=== PATIENT | female | born 1940 | race Caucasian/White ===

== ENCOUNTER 2019-11-08 08:49 | Outpatient (CLI) | payer MEDICARE, OTHER, SELFPAY ==
--- NOTE | ~2019-11-08 | MM_ITS ---
EXAMINATION: MM screening aj BI w julianne HISTORY: Screening mammogram TECHNIQUE: Craniocaudal and mediolateral oblique 3-D tomosynthesis images were obtained and synthetic 2-D images were generated. CAD analysis was submitted and interpreted. COMPARISON: Comparison to multiple prior studies sequentially, with oldest reviewed study dated 09/13. BREAST PARENCHYMAL COMPOSITION: The breasts are almost entirely fatty. FINDINGS: There is no evidence of suspicious mass, calcification, or architectural distortion to sugg est malignancy in either breast. There has been no suspicious interval change. IMPRESSION: 1. No mammographic evidence of malignancy. 2. Recommend routine screening mammography in one year. BI-RADS Category 1: Negative Reviewed, dictated and finalized at location A.
== END 2019-11-08 08:50 | disposition home or self-care (01) ==
PROVIDERS: PCP Family Medicine; Visit Provider Family Medicine
DX: Z12.31 Encounter for screening mammogram for malignant neoplasm of breast (principal)
CPT/HCPCS: 77063; 77067

== ENCOUNTER 2020-11-22 06:47 | Outpatient (CLI) | payer MEDICARE, OTHER, SELFPAY ==
--- NOTE | ~2020-11-22 | MR_ITS ---
EXAMINATION: MR brain IAC wo/w con DATE: 11/22/2020 08:08 INDICATION: Right-sided hearing loss. TECHNIQUE: Magnetic resonance imaging (MRI) of the brain, brainstem, and internal auditory canals was performed without and with 12 mL MultiHance intravenous contrast. Sequences included sagittal and ax ial T1-weighted FSE, axial diffusion-weighted FS EPI, axial T2*-weighted GRE, axial T2-weighted FLAIR Propeller, axial T2-weighted Propeller, small utpks-tg-hqwc coronal FIESTA, small lmjym-bq-khry shelley nal T1-weighted FSE, and small uhtqe-cu-pbbi axial T1-weighted SPGR. Postcontrast sequences included axial T1-weighted FSE, small uetwm-oq-bjne coronal T1-weighted FSE, and small jvxzq-jg-zuoy axial T1- weighted SPGR. Apparent diffusion coefficient (ADC) maps were created. COMPARISON: None. FINDINGS: There is no intracranial hemorrhage, acute infarction, or abnormal intracranial mass lesion . The ventricles are normal in size. There is mild mucosal thickening in the ethmoid sinuses. There a re likely changes of ocular lens replacement surgeries. The mastoid air cells are normal. The interna l auditory canals and inner and middle ears are normal. IMPRESSION: 1. Normal brain. Reviewed, dictated and finalized at location A. IMPRESSION: 1. Normal brain.
== END 2020-11-22 06:48 | disposition home or self-care (01) ==
LOC: ANHIMG 06:51
PROVIDERS: PCP Family Medicine; Visit Provider Otolaryngology
DX: H91.8X9 Other specified hearing loss, unspecified ear (principal)
CPT/HCPCS: 70553; A9577

== ENCOUNTER → 2021-01-02 17:25 | Outpatient (CLI) | payer MEDICARE, OTHER, SELFPAY ==
--- NOTE | ~2021-01-02 | DEXA_ITS ---
Bone Density Report Name: Christelle Pérez Age: 80 Sex: Female Ethnicity: White Date of : 1940 Indication: postmenopausal; screening for osteoporosis; parental hip fracture; height loss; prior fracture; hysterectomy; Referring Provider: KHUSHBU ALEXIS Study: Bone densitometry was performed. Exam Date: January 02, 2021 Accession number: [id number] Bone Density: Region BMD T-score Z-score Classification AP Spine (L1-L4) 0.934 -1.0 1.6 Normal Femoral Neck (Left) 0.642 -1.9 0.4 Osteopenia Total Hip (Left) 0.807 -1.1 0.9 Osteopenia Femoral Neck (Right) 0.627 -2.0 0.3 Osteopenia Total Hip (Right) 0.868 -0.6 1.4 Normal Total Hip Mean 0.838 -0.9 1.2 Normal World Health Organization criteria for BMD impression classify patients as: Normal (T-score at or above -1.0), Osteopenia (T-score between -1.0 and -2.5), or Osteoporosis (T-score at or below -2.5). 10-year Fracture Risk(1): Major Osteoporotic Fracture 37% Hip Fracture 22% Reported Risk Factors: [place] (), Neck BMD=0.627, BMI=25.3, previous fracture, parental fracture (1) FRAX(R) Version 3.08. Fracture probability calculated for an untreated patient. Fracture probability may be lower if the patient has received treatment. Previous Exams: Region Exam Age BMD T-score BMD Change BMD Change Date g/cm2 vs Baseline vs Previous AP Spine(L1-L4) 01/02/2021 80 0.934 -1.0 -0.005 0.000 09/15/2014 73 0.935 -1.0 -0.005 0.031 09/13/2012 71 0.903 -1.3 -0.036* -0.024* 08/23/2010 69 0.927 -1.1 -0.012 0.056* 06/12/2008 67 0.871 -1.6 -0.068* -0.016 06/04/2006 65 0.887 -1.5 -0.052* -0.052* 05/10/2004 63 0.939 -1.0 Total Hip(Left) 01/02/2021 80 0.807 -1.1 -0.163* -0.083 09/15/2014 73 0.889 -0.4 -0.080 0.010 09/13/2012 71 0.880 -0.5 -0.089* 0.026 08/23/2010 69 0.854 -0.7 -0.116* -0.026 06/12/2008 67 0.880 -0.5 -0.090* -0.004 06/04/2006 65 0.884 -0.5 -0.086* -0.086* 05/10/2004 63 0.969 0.2 Total Hip(Right) 01/02/2021 80 0.868 -0.6 -0.074* -0.126 09/15/2014 73 0.994 0.4 0.052 0.057 09/13/2012 71 0.936 0.0 -0.005 0.022 08/23/2010 69 0.914 -0.2 -0.028* -0.035* 06/12/2008 67 0.950 0.1 0.008 0.019 06/04/2006 65 0.931 -0.1 -0.011 -0.011 05/10/2004 63 0.942 0.0 --
--- NOTE | ~2021-01-02 | MM_ITS ---
EXAMINATION: MM screening aj BI w julianne HISTORY: Screening TECHNIQUE: Craniocaudal and mediolateral oblique 3-D tomosynthesis images were obtained and synthetic 2-D images were generated. CAD analysis was submitted and interpreted. COMPARISON: Comparison to multiple prior studies sequentially, with oldest reviewed study dated 09/15. BREAST PARENCHYMAL COMPOSITION: The breasts are almost entirely fatty. FINDINGS: There is no evidence of suspicious mass, calcification, or architectural distortion to sugg est malignancy in either breast. There has been no suspicious interval change. IMPRESSION: 1. No mammographic evidence of malignancy. 2. Recommend routine screening mammography in one year. BI-RADS Category 1: Negative Reviewed, dictated and finalized at location A.
== END ==
PROVIDERS: PCP Family Medicine; Visit Provider Physician Assistant
DX: Z12.31 Encounter for screening mammogram for malignant neoplasm of breast (principal); Z78.0 Asymptomatic menopausal state; M85.852 Other specified disorders of bone density and structure, left thigh; M85.851 Other specified disorders of bone density and structure, right thigh
CPT/HCPCS: 77063; 77067; 77080

== ENCOUNTER 2021-10-08 10:57 | Emergency (ER) | payer MEDICARE, OTHER, SELFPAY ==
[2021-10-08 11:10] VITALS: BP 144/79; PULSE 97; RESP 16; TEMP 36.6; O2SAT 98
--- NOTE | 2021-10-08 11:34 | ED.URI ---
HPI - URI/Sore Throat General Chief Complaint: Upper Respiratory Infection Stated Complaint: Sore Throat Time Seen by Provider: 10/08/21 11:34 Source: patient Mode of arrival: ambulatory Limitations: no limitations History of Present Illness HPI Narrative: 80-year-old female presents with complaint of sore throat for 1 week. Denies fever chills. Reports that she has felt fatigued. States throat is painful all day, worse at night. Taking Claritin daily with no relief. States sore throat and swelling does make it difficult for her to swallow. All systems reviewed and negative except as noted above. Related Data Home Medications Medication Instructions Recorded Confirmed calcium carbonate 600 mg calcium 600 mg PO DAILY 11/13/20 10/08/21 (1,500 mg) tablet naproxen sodium 220 mg tablet 220 mg PO Q12H 11/13/20 10/08/21 omega 0-xzo-wdp-fish oil 1,200 mg 1 cap PO DAILY 11/13/20 10/08/21 (144 mg-216 mg) capsule L.acidop,hever,lac,rha-B.lac,soumya 1 cap PO DAILY 10/08/21 10/08/21 [Advanced Probiotic] glucosamine-chondroitin [Osteo 1 tablet PO DAILY 10/08/21 10/08/21 Bi-Flex] Allergies Allergy/AdvReac Type Severity Reaction Status Date / Time erythromycin base Allergy Unknown unknown Verified 10/08/21 11:01 Review of Systems Review of Systems: CONSTITUTIONAL: Denies fever, chills, or sweats. EYES: Denies visual changes, redness, or discharge. ENT: Denies rhinorrhea, congestion. Reports sore throat. CARDIOVASCULAR: Denies chest pain, palpitations, or edema. RESPIRATORY: Denies cough or dyspnea. GASTROINTESTINAL: Denies abdominal pain, nausea, vomiting, or diarrhea. GENITOURINARY: Denies dysuria or hematuria. SKIN: Denies rash or itching. MUSCULOSKELETAL: Denies back pain, joint pain, or myalgia. NEUROLOGIC: Denies headache, numbness, or weakness. PSYCHIATRIC: Denies anxiety or depression. All other systems reviewed are negative, except as documented in HPI. FORMERLY [facility], [facility] Past Medical History Medical History Dizziness Family History Family History Father Family history of diabetes mellitus in first degree relative Family history of heart disease in male family member before age 55 Diabetes mellitus Family history of cardiovascular disease Mother Family history of heart disease in male family member before age 55 Sibling Diabetes mellitus Social History Social History Smoking status: Never smoker Alcohol intake: current Alcohol use details: social drinker Substance use: never Substance use type: does not use Gender identity (if verbalized by the patient): Female Comments At time of signature, agree with nursing past medical, surgical, social and family history. There is no relevant family history pertinent to the presenting complaint. Exam Narrative: GENERAL: This is a well-nourished, well-developed patient, in no apparent distress. HEAD: normocephalic, atraumatic. EYES: PERRL. Sclera clear/white. Vision is grossly intact. EARS: External ears normal, auditory canals clear and without drainage, TMs normal without perforation. Hearing grossly intact. NOSE: External nose normal with no obvious nasal discharge, nares without redness, no rhinorrhea. THROAT: Mucous membranes moist. Erythema to posterior pharynx with mild swelling. No tonsillar swelling. No tonsillar exudate. Uvula is slightly swollen. NECK: Neck supple, non-tender without lymphadenopathy, masses or thyromegaly. CARDIOVASCULAR: Regular rate and rhythm without murmurs, gallops, or rubs. RESPIRATORY: Clear to auscultation. Breath sounds equal bilaterally. No wheezes, rales, or rhonchi. SKIN: warm, Dry, intact with no suspicious lesions or rash, good texture and turgor. NEURO: awake, alert, and oriented to person, place and time. There were no obvious focal neurologic abnormaliti
== END 2021-10-08 11:55 | disposition home or self-care (01) ==
PROVIDERS: Emergency Provider Nurse Practitioner Family; PCP Family Medicine
DX: J02.9 Acute pharyngitis, unspecified (principal); M19.90 Unspecified osteoarthritis, unspecified site
CPT/HCPCS: 87081; 87880; 99213; G0463

== ENCOUNTER → 2022-01-23 13:14 | Outpatient (CLI) | payer MEDICARE, OTHER, SELFPAY ==
--- NOTE | ~2022-01-23 | MM_ITS ---
EXAMINATION: MM screening aj BI w julianne HISTORY: Screening TECHNIQUE: Craniocaudal and mediolateral oblique 3-D tomosynthesis images were obtained and synthetic 2-D images were generated. CAD analysis was submitted and interpreted. COMPARISON: Comparison to multiple prior studies sequentially, with oldest reviewed study dated 09/15. BREAST PARENCHYMAL COMPOSITION: The breasts are almost entirely fatty. FINDINGS: There is no evidence of suspicious mass, calcification, or architectural distortion to sugg est malignancy in either breast. There has been no suspicious interval change. IMPRESSION: 1. No mammographic evidence of malignancy. 2. Recommend routine screening mammography in one year. BI-RADS Category 1: Negative Reviewed, dictated and finalized at location A.
== END ==
PROVIDERS: PCP Family Medicine; Visit Provider Family Medicine
DX: Z12.31 Encounter for screening mammogram for malignant neoplasm of breast (principal)
CPT/HCPCS: 77063; 77067

== ENCOUNTER → 2023-07-17 09:43 | Outpatient (CLI) | payer MEDICARE, OTHER, SELFPAY ==
--- NOTE | ~2023-07-17 | DEXA_ITS ---
Bone Density Report Name: BOSTON ORDOÑEZ Age: 82 Sex: Female Ethnicity: White Date of : 1940 Indication: osteopenia; parental hip fracture; height loss; prior fracture; hysterectomy; Referring Provider: Kamran Chandra Study: Bone densitometry was performed. Exam Date: July 17, 2023 Accession number: [id number] Bone Density: Region BMD T-score Z-score Classification AP Spine (L1, L2, L3) 0.864 -1.4 1.3 Osteopenia Femoral Neck (Left) 0.603 -2.2 0.2 Osteopenia Total Hip (Left) 0.808 -1.1 1.1 Osteopenia Femoral Neck (Right) 0.634 -1.9 0.4 Osteopenia Total Hip (Right) 0.904 -0.3 1.8 Normal Total Hip Mean 0.856 -0.7 1.5 Normal World Health Organization criteria for BMD impression classify patients as: Normal (T-score at or above -1.0), Osteopenia (T-score between -1.0 and -2.5), or Osteoporosis (T-score at or below -2.5). 10-year Fracture Risk(1): Major Osteoporotic Fracture 41% Hip Fracture 27% Reported Risk Factors: [place] (), Neck BMD=0.603, BMI=25.2, previous fracture, parental fracture (1) FRAX(R) Version 3.08. Fracture probability calculated for an untreated patient. Fracture probability may be lower if the patient has received treatment. Previous Exams: Region Exam Age BMD T-score BMD Change BMD Change Date g/cm2 vs Baseline vs Previous AP Spine(L1, L2, L3) 07/17/2023 82 0.864 -1.4 -0.061* -0.012 01/02/2021 80 0.876 -1.3 -0.049* -0.033 09/15/2014 73 0.909 -1.0 -0.016 0.029 09/13/2012 71 0.879 -1.3 -0.046* -0.020 08/23/2010 69 0.899 -1.1 -0.026* 0.025* 06/12/2008 67 0.874 -1.3 -0.051* -0.001 06/04/2006 65 0.875 -1.3 -0.051* -0.051* 05/10/2004 63 0.925 -0.8 Total Hip(Left) 07/17/2023 82 0.808 -1.1 -0.161* 0.002 01/02/2021 80 0.807 -1.1 -0.163* -0.083 09/15/2014 73 0.889 -0.4 -0.080 0.010 09/13/2012 71 0.880 -0.5 -0.089* 0.026 08/23/2010 69 0.854 -0.7 -0.116* -0.026 06/12/2008 67 0.880 -0.5 -0.090* -0.004 06/04/2006 65 0.884 -0.5 -0.086* -0.086* 05/10/2004 63 0.969 0.2 Total Hip(Right) 07/17/2023 82 0.904 -0.3 -0.038* 0.036* 01/02/2021 80 0.868 -0.6 -0.074* -0.126 09/15/2014 73 0.994 0.4 0.052 0.057 09/13/2012 71 0.936 0.0 -0.005 0.022 08/23/2010 69 0.914 -0.2 -0.028* -0.035* 01/
--- NOTE | ~2023-07-17 | MM_ITS ---
EXAMINATION: MM screening aj BI w julianne HISTORY: Screening mammogram, family history of breast cancer in her mother. TECHNIQUE: Craniocaudal and mediolateral oblique 3-D tomosynthesis images were obtained and synthetic 2-D images were generated. CAD analysis was submitted and interpreted. COMPARISON: 01/23/2022, 01/02/2021, 11/08/2019 BREAST PARENCHYMAL COMPOSITION: The breasts are almost entirely fatty. FINDINGS: No suspicious mass, calcification, or architectural distortion are identified in either katt ast to suggest malignancy. There has been no suspicious interval change. IMPRESSION: 1. No mammographic evidence of malignancy. 2. Recommend routine screening mammography while the patient remains in good health. BI-RADS Category 1: Negative Reviewed, dictated and finalized at location A. DOWN ATTENDANT IMPRESSION: 1. No mammographic evidence of malignancy. 2. Recommend routine screening mammography while the patient remains in good he alth. BI-RADS Category 1: Negative
== END ==
PROVIDERS: PCP Family Medicine; Visit Provider Family Medicine
DX: Z12.31 Encounter for screening mammogram for malignant neoplasm of breast (principal); Z78.0 Asymptomatic menopausal state; M85.88 Other specified disorders of bone density and structure, other site; M85.852 Other specified disorders of bone density and structure, left thigh; M85.851 Other specified disorders of bone density and structure, right thigh
CPT/HCPCS: 77063; 77067; 77080

== ENCOUNTER 2024-10-18 10:16 | Outpatient (CLI) | payer MEDICARE, OTHER, SELFPAY ==
--- NOTE | ~2024-10-18 | MM_ITS ---
EXAMINATION: MM screening aj BI w julianne HISTORY: Screening TECHNIQUE: Craniocaudal and mediolateral oblique 3-D tomosynthesis images were obtained and synthetic 2-D images were generated. CAD analysis was submitted and interpreted. COMPARISON: Comparison to multiple prior studies sequentially, with oldest reviewed study dated 01/08. BREAST PARENCHYMAL COMPOSITION: Not Dense: The breasts are almost entirely fatty. FINDINGS: There is no evidence of suspicious mass, calcification, or architectural distortion to sugg est malignancy in either breast. There has been no suspicious interval change. IMPRESSION: 1. No mammographic evidence of malignancy. 2. Recommend routine screening mammography in one year. BI-RADS Category 1: Negative Reviewed, dictated and finalized at location B.
== END 2024-10-18 10:17 | disposition home or self-care (01) ==
PROVIDERS: PCP Family Medicine; Visit Provider Family Medicine
DX: Z12.31 Encounter for screening mammogram for malignant neoplasm of breast (principal)
CPT/HCPCS: 77063; 77067